=== PATIENT | female | born 1965 | race Hispanic/Latino ===

== ENCOUNTER 2017-04-07 22:31 | Emergency (ER) | payer BC ==
[2017-04-07 22:31] VITALS: BMI 25.4
[2017-04-07 23:16] VITALS: TEMP 98
--- NOTE | 2017-04-07 23:51 | ED PDOC ---
Arrival/HPI - General Chief Complaint: Lower Extremity Problem/Injury Time Seen by Provider: 04/07/17 23:49 Historian: Patient, Spouse - History of Present Illness Narrative History of Present Illness (Text): 04/07/17 23:35 This 51 yo female presents to this ED c/o b/l leg swelling, and left foot fracture x 3 days. Patient stated she hurt her left foot in [facility]. Patient had x-rays taken yesterday, which patient report radiologist called her today, and Dx. foot Fx. She was recommended to come to ED for splinting. Time/Duration: Other (3 days) Symptom Course: Worsening Context: Other ([facility]) Past Medical History - Provider Review Nursing Documentation Reviewed: Yes - Infectious Disease Hx of Infectious Diseases: None - Tetanus Immunization Tetanus Immunization: Unknown - Reproductive Menopause: Yes - Past Medical History Past Medical History: No Previous - Cardiac Hx Cardiac Disorders: No Hx Pacemaker: No - Pulmonary Hx Respiratory Disorders: Yes (SMOKE CIGARETTES ONE PPD) - Neurological Hx Neurological Disorder: No Hx Paralysis: No - HEENT Hx HEENT Disorder: No (WEARS RX GLASSES) - Renal Hx Renal Disorder: No - Endocrine/Metabolic Hx Endocrine Disorders: No - Hematological/Oncological Hx Blood Disorders: No Hx Blood Transfusions: No - Integumentary Hx Dermatological Disorder: No - Musculoskeletal/Rheumatological Hx Musculoskeletal Disorders: Yes (RIGHT TORN MENISCUS) Hx Falls: No Other/Comment: B/L Torn Meniscus - Gastrointestinal Hx Gastrointestinal Disorders: Yes Hx Diverticulitis: Yes - Genitourinary/Gynecological Hx Genitourinary Disorders: (FIBROID UTERUS-POST MINI LAP ABDOMINAL HYSTERECTOMY SUBTOTAL SALPHINGOOOPHO) Other/Comment: C SECTION - Psychiatric Hx Psychophysiologic Disorder: Yes Hx Anxiety: Yes Hx Emotional Abuse: No Hx Physical Abuse: No Hx Substance Use: No - Surgical History Hx Section: Yes Hx Hysterectomy: Yes Hx Orthopedic Surgery: Yes (ACL Repair) Hx Tonsillectomy: Yes Other/Comment: SINUSES - Anesthesia Hx Anesthesia: Yes Hx Anesthesia Reactions: No ("I HAVE A HIGH PAIN TOLERANCE") Hx Malignant Hyperthermia: No - Suicidal Assessment Feels Threatened In Home Enviroment: No Family/Social History - Physician Review Nursing Documentation Reviewed: Yes Family/Social History: No Known Family HX Smoking Status: Heavy Smoker > 10 Cigarettes Daily Hx Alcohol Use: No Hx Substance Use: No Hx Substance Use Treatment: No Allergies/Home Meds Allergies/Adverse Reactions: Allergies No Known Allergies Allergy (Verified 02/25/15 08:16) Home Medications: Home Meds Medication Instructions Recorded Confirmed Alprazolam [Xanax] 1 mg PO BID 10/10/14 02/25/15 Ciprofloxacin [Cipro] 500 mg PO BID 02/25/15 02/25/15 metroNIDAZOLE [Flagyl] 500 mg PO TID 02/25/15 02/25/15 Review of Systems - Review of Systems Constitutional: Normal. absent: Fatigue, Weight Change, Fevers, Night Sweats Eyes: Normal ENT: Normal Respiratory: Normal Cardiovascular: Normal Gastrointestinal: Normal Genitourinary Female: Normal Musculoskeletal: Other (see hpi) Skin: Normal Neurological: Normal Endocrine: Normal Hemo/Lymphatic: Normal Psychiatric: Normal Physical Exam Vital Signs Temp Pulse Resp BP Pulse Ox 04/08/17 01:00 66 16 139/30 L 99 04/07/17 23:00 98.0 F 55 L 14 116/65 98 Temperature: Afebrile Blood Pressure: Normal Pulse: Regular Respiratory Rate: Normal Appearance: Positive for: Well-Appearing, Non-Toxic, Comfortable Pain Distress: None Mental Status: Positive for: Alert and Oriented X 3 - Systems Exam Head: Present: Atraumatic, Normocephalic Pupils: Present: PERRL Extroacular Muscles: Present: EOMI Conjunctiva: Present: Normal Mouth: Present: Moist Mucous Membranes Neck: Present: Normal Range of Motion Respiratory/Chest: Present: Clear to Auscultation, Good Air Exchange. No: Respiratory Distress, Accessory Muscle Use Cardiovascular: Present: Regular Rate and Rhythm, Normal S1, S2. No: Murmurs Abdomen: Present: Normal Bowel Sounds. No: Tenderness, Distention, Peritoneal Signs Back: Present: Normal Inspection Upper Extremity: Present: Normal Inspection. No: Cyanosis, Edema Lower Extremity: Present: NORMAL PULSES, Neurovascularly Intact, Capillary Refill < 2 s, Other (Left lateral ffot mild tenderness with ecchymosis. Trace edema b/l lower leg up to mid walker. No erythema, cellulitis or skin rash. Zapata test was negative. no proximal fibula tenderness on palpation.). No: Edema, CALF TENDERNESS, Cyanosis, Diego's Sign, Tenderness, Erythema, Deformity , Temperature Abnormalties Neurological: Present: GCS=15, CN II-XII Intact, Speech Normal, Motor Func Grossly Intact, Normal Sensory Function, Normal Cerebellar Funct Skin: Present: Warm, Dry, Normal Color. No: Rashes Psychiatric: Present: Alert, Oriented x 3, Normal Insight, Normal Concentration Medical Decision Making ED Course and Treatment: 04/08/17 01:49 Patient does not want crutches, since she feels she may fall and hurts herself more. I am recommending walker or cane. Re-evaluation Time: 01:50 Reassessment Condition: Re-examined, Improved - RAD Interpretation Narrative RAD Interpretations (Text): 04/08/17 01:50 B/L lower Extremities Venous Doppler: no DVT, as per Radiology Left foot x-rays: (+) mild displaced 5th metatarsal Fx. Radiology Orders: 04/07/17 23:49 FOOT LEFT 3 VIEWS ROUTINE [RAD] Stat 04/07/17 23:50 FOOT RIGHT 3 VIEWS ROUTINE [RAD] Stat DUPLEX LOWER EXTRM VEIN BILAT [US] Stat - Medication Orders Current Medication Orders: Discontinued Medications Oxycodone/Acetaminophen (Percocet 5/325 Mg Tab) 1 tab PO STAT STA Stop: 04/08/17 01:54 Last Admin: 04/08/17 02:06 Dose: 1 tab - Procedure PROCEDURE NOTE (Text): 04/08/17 02:08 PROCEDURE: SPLINT APPLICATION Applied by Emergency Provider. Location: left foot/ankle Procedure: The area of the splint was appropriately positioned. A 5 inch orth glass, posterior splint was applied. Post-procedure: Good position. Neurovascular status remains intact. Patient tolerated the procedure well with no immediate complications Disposition/Present on Arrival - Present on Arrival Any Indicators Present on Arrival: No History of DVT/PE: No History of Uncontrolled Diabetes: No Urinary Catheter: No History of Decub. Ulcer: No History Surgical Site Infection Following: None - Disposition Have Diagnosis and Disposition been Completed?: Yes Diagnosis: Metatarsal bone fracture Disposition: HOME/ ROUTINE Disposition Time: 01:52 Patient Plan: Discharge Patient Problems: Current Active Problems Problem Status Onset Metatarsal bone fracture Acute Condition: GOOD Discharge Instructions (ExitCare): Foot Fracture in Adults (ED) Additional Instructions: Call Dr. Novak [facility] office tomorrow for follow up visit. Keep foot elevated, rest. Return to emergency if pain worsen. return to emergency if symptoms worsen. Prescriptions: Ibuprofen [Motrin] 600 mg PO Q8 PRN #20 tab PRN Reason: Pain, Severe (8-10) oxyCODONE/Acetaminophen [Percocet 5/325 mg Tab] 1 ea PO TID PRN #10 tab PRN Reason: Pain, Severe (8-10) Referrals: Bryn ULLOA,Brody Yeung MD [Primary Care Provider] - Follow up with primary Mary Novak DPM [Staff Provider] - Follow up with primary Forms: [facility] (Bots[place]an), WORK NOTE
[2017-04-08 01:00] VITALS: BP 139/30; PULSE 66; RESP 16; O2SAT 99
[2017-04-08] MEDS ORDERED: Oxycodone/Acetaminophen 5/325 mg Tab PO STA (01:53)
--- NOTE | 2017-04-08 07:29 | RAD ---
PROCEDURE: Left Foot Radiographs. HISTORY: pain COMPARISON: None. FINDINGS: BONES: Fracture mid 5th metatarsal diaphysis. Slightly displaced. No other fracture. Surgical clips adjacent to sesamoid of 1st metatarsal head. JOINTS: Normal. SOFT TISSUES: Normal. OTHER FINDINGS: None. IMPRESSION: Mildly displaced mid 5th metatarsal fracture. Otherwise unremarkable.
--- NOTE | 2017-04-08 07:32 | RAD ---
PROCEDURE: Right Foot Radiographs. HISTORY: pain COMPARISON: None. FINDINGS: BONES: No acute fracture. Plantar calcaneal spur noted. JOINTS: Flexion deformity of 2nd through 5th digits (hammer toe) otherwise unremarkable. SOFT TISSUES: Normal. OTHER FINDINGS: None. IMPRESSION: No acute fracture.
--- NOTE | 2017-04-08 14:32 | US ---
HISTORY: Leg pain and swelling. Evaluate for DVT PHYSICIAN(S): Hipolito Oates MD. TECHNIQUE: Duplex sonography and color-flow Doppler with graded compression were used to evaluate the deep venous systems of both lower extremities. FINDINGS: The visualized deep venous systems of both lower extremities are sonographically normal and compressible. Normal wave forms and augmentation are seen. There is no sonographic evidence for deep venous thrombosis in the visualized segments of both lower extremities. IMPRESSION: No sonographic evidence for deep venous thrombosis in the visualized segments of both lower extremities.
== END 2017-04-08 02:11 | disposition home or self-care (01) ==
LOC: ED 22:31
DX: S92.352D Displaced fracture of fifth metatarsal bone, left foot, subsequent encounter for fracture with routine healing (principal); X58.XXXD Exposure to other specified factors, subsequent encounter

== ENCOUNTER 2018-12-29 14:37 | Outpatient (CLI) | payer BC | END 2018-12-29 14:38 | disposition home or self-care (01) | LOC: RAD 14:37 | DX: Z12.31 Encounter for screening mammogram for malignant neoplasm of breast (principal) ==